=== PATIENT | female | born 2005 | race Hispanic/Latino ===

== ENCOUNTER 2024-08-04 12:08 | Emergency (ER) | payer OTHER ==
[~2024-08-04] VITALS: Ht 162.6 cm; Wt 56.7 kg
[2024-08-04] MEDS: ONDANSETRON 4MG ORAL DISINTEGRATING TAB PO ONE (16:13)
[2024-08-04 16:20] VITALS: BP 117/89; TEMP 96.9; O2SAT 99
[2024-08-04] MEDS ORDERED: ONDA-282 PO (17:30)
== END 2024-08-04 17:39 | disposition home or self-care (01) ==
LOC: M ED 12:08
DX: R11.2 Nausea with vomiting, unspecified (principal); Z3A.00 Weeks of gestation of pregnancy not specified; Z79.899 Other long term (current) drug therapy

== ENCOUNTER 2024-08-18 12:45 | Emergency (ER) | payer OTHER ==
[~2024-08-18] VITALS: Ht 162.6 cm; Wt 56.7 kg
[~2024-08-18 12:45] MED LIST: ONDA-282 PO
[2024-08-18 14:52] LABS: BASO % 0.5 % (0.0-1.0); EOS % 0.2 % (0.0-3.0); HEMATOCRIT 40.2 % (36.0-47.0); HEMOGLOBIN 13.7 g/dl (12.0-15.5); LYMPH # 1.7 10^3/uL (1.5-5.0); LYMPH % 19.6 % (24.0-44.0); MEAN CORPUSCULAR HEMOGLOBIN 32.5 pg (27.0-33.0); MEAN CORPUSCULAR HGB CONC 34.1 g/dl (32.0-36.5); MEAN CORPUSCULAR VOLUME 95.3 fl (80.0-96.0); MONO # 0.7 10^3/uL (0.0-0.8); MONO % 8.4 % (2.0-8.0); NEUTROPHILS # 6.2 10^3/uL (1.5-8.5); NEUTROPHILS % 70.8 % (36.0-66.0); PLATELET COUNT, AUTOMATED 259 10^3/uL (150-450); RED BLOOD COUNT 4.22 10^6/uL (4.00-5.40); WHITE BLOOD COUNT 8.8 10^3/uL (4.0-10.0)
[2024-08-18 14:59] LABS: LIPASE 28 U/L (12-53)
[2024-08-18 15:01] LABS: ALBUMIN 3.7 G/DL (3.2-5.2); ALKALINE PHOSPHATASE 79 U/L (35-104); ALT/SGPT 9 U/L (7.0-40); AST/SGOT 12 U/L (<34); BILIRUBIN,DIRECT 0.2 MG/DL (<0.4); BILIRUBIN,TOTAL 0.7 MG/DL (0.3-1.2); BLOOD UREA NITROGEN 8 MG/DL (9-23); CARBON DIOXIDE LEVEL 26 MMOL/L (20-31); CHLORIDE LEVEL 105 MMOL/L (98-107); CREATININE FOR GFR 0.54 MG/DL (0.55-1.30); GLOMERULAR FILTRATION RATE > 90.0 (>60); GLUCOSE, FASTING 74 MG/DL (60-100); POTASSIUM SERUM 3.9 MMOL/L (3.5-5.1); SODIUM LEVEL 140 MMOL/L (136-145); TOTAL PROTEIN 7.1 G/DL (5.7-8.2)
[2024-08-18 15:27] LABS: HCG, SERUM QUANTITATIVE 177476.2 MIU/ML (<4.2)
[2024-08-18 16:16] LABS: KETONE, URINE AUTO RFX 1+ mg/dL (NEGATIVE); LEUKOCYTE ESTERASE UR AUTO RFX NEGATIVE (NEGATIVE); MUCUS, URINE RFX LARGE (NEGATIVE); NITRITE, URINE AUTO RFX NEGATIVE (NEGATIVE); RBC, URINE AUTO RFX 1 /HPF (0-3); SQUAM EPITHELIAL CELL UR AURFX 2 /HPF (0-6); WBC, URINE AUTO RFX 2 /HPF (0-3)
[2024-08-18] MEDS: ONDANSETRON 4MG ORAL DISINTEGRATING TAB PO ONE (17:12)
[2024-08-18 19:05] VITALS: BP 111/77; TEMP 97.1; O2SAT 100
== END 2024-08-18 19:08 | disposition home or self-care (01) ==
LOC: M ED 12:45
DX: O21.9 Vomiting of pregnancy, unspecified (principal); Z3A.01 Less than 8 weeks gestation of pregnancy

== ENCOUNTER → 2024-10-19 | Outpatient (CLI) | payer OTHER ==
[2024-10-19 13:45] LABS: PLATELET COUNT, AUTOMATED 258 10^3/uL (150-450)
[2024-10-19 14:14] LABS: HIV 1&2 SCREEN NEGATIVE (NEGATIVE)
[2024-10-19 14:22] LABS: HEPATITIS C VIRUS ABY INDEX 0.13 INDEX (<0.8)
[2024-10-19 14:42] LABS: Trichomonas vaginalis (AMP) NOT DETECTED (NEGATIVE)
[2024-10-19 15:06] LABS: GC DNA AMPLIFICATION NEGATIVE (NEGATIVE)
== END ==
LOC: M PLALAB 08:59
PROVIDERS: ATTEND Nurse Practitioner Family
DX: Z34.82 Encounter for supervision of other normal pregnancy, second trimester (principal)

== ENCOUNTER → 2024-10-19 | Outpatient (REF) | payer OTHER | LOC: M PLALAB 09:15 | PROVIDERS: ATTEND Nurse Practitioner Family | DX: Z34.82 Encounter for supervision of other normal pregnancy, second trimester (principal) ==

== ENCOUNTER → 2024-11-23 | Outpatient (CLI) | payer OTHER | LOC: M RAD 15:54 | PROVIDERS: ATTEND Nurse Practitioner Family | DX: Z34.82 Encounter for supervision of other normal pregnancy, second trimester (principal); Z3A.22 22 weeks gestation of pregnancy ==

== ENCOUNTER → 2024-12-28 | Outpatient (CLI) | payer OTHER ==
[2024-12-28 16:16] LABS: PLATELET COUNT, AUTOMATED 275 10^3/uL (150-450)
[2024-12-28 16:38] LABS: GLUCOSE CHALLENGE TEST 1 HOUR 71 MG/DL (LESS THAN 140)
[2024-12-28 17:08] LABS: HIV 1&2 SCREEN NEGATIVE (NEGATIVE)
[2024-12-28 17:16] LABS: HEPATITIS C VIRUS ABY INDEX 0.02 INDEX (<0.8)
[2024-12-28 18:08] LABS: Trichomonas vaginalis (AMP) NOT DETECTED (NEGATIVE)
[2024-12-28 18:31] LABS: GC DNA AMPLIFICATION NEGATIVE (NEGATIVE)
== END ==
LOC: M PLALAB 12:48
PROVIDERS: ATTEND Nurse Practitioner Family
DX: Z34.80 Encounter for supervision of other normal pregnancy, unspecified trimester (principal)

== ENCOUNTER → 2025-03-07 | Outpatient (REF) | payer OTHER | LOC: M SFHCWAGY 13:00 | PROVIDERS: ATTEND Obstetrics & Gynecology | DX: Z34.80 Encounter for supervision of other normal pregnancy, unspecified trimester (principal) ==

== ENCOUNTER 2025-03-26 08:20 | Inpatient (IN) | payer OTHER ==
[2025-03-26] VITALS (15 sets, daily range): BP systolic 104–134; BP diastolic 64–95
[~2025-03-26] VITALS: Ht 162.6 cm; Wt 71.9 kg
[2025-03-26] MEDS ORDERED: PRENTAB9 PO (08:42)
[2025-03-26] MEDS ORDERED: OXYTOCIN INJ 10UNITS/ML 1ML VIAL IV PRN (08:45)
[2025-03-26] MEDS ORDERED: CARBOPROST TROMETHAMINE 250 MCG/ML AMP IM PRN (08:45)
[2025-03-26] MEDS ORDERED: OXYTOCIN DRIP 30 UNITS in IV 1 EA IV PRN (08:45)
[2025-03-26] MEDS ORDERED: OXYTOCIN INJ 10UNITS/ML 1ML VIAL IM PRN (08:45)
[2025-03-26] MEDS: miSOPROStol 50 MCG 1/2 TABLET PO PRN (10:09)
[2025-03-26 10:22] LABS: HIV 1&2 SCREEN NEGATIVE (NEGATIVE)
[2025-03-26 10:30] LABS: HEPATITIS C VIRUS ABY INDEX 0.06 INDEX (<0.8)
[2025-03-26 12:48] LABS: PLATELET COUNT, AUTOMATED 282 10^3/uL (150-450)
[2025-03-26] MEDS: LR 1,000 ML IV SCH (16:45)
[2025-03-26] MEDS: OXYTOCIN DRIP 30 UNITS in IV 1 EA IV SCH (19:44)
[2025-03-26] MEDS: BUTORPHANOL 2 MG/ML 1 ML VIAL IV ONE (23:37)
[2025-03-27] VITALS (14 sets, daily range): BP systolic 87–141; BP diastolic 54–95; O2SAT 98–100
[2025-03-27 01:09] LABS: CORD GAS ABE A -2.5; CORD GAS ABE V -2.2; CORD GAS HCO3 A 24.9 MMOL/L; CORD GAS HCO3 V 21.1 MMOL/L; CORD GAS O2 SAT A 78.2 %; CORD GAS O2 SAT V 83.6 %; CORD GAS PCO2 A 52.4 mmHg; CORD GAS PCO2 V 33.2 mmHg; CORD GAS PH A 7.295 UNITS; CORD GAS PH V 7.422 UNITS; CORD GAS PO2 A 39.0 mmHg; CORD GAS PO2 V 36.9 mmHg; CORD GAS SBC A 21.9 MMOL/L; CORD GAS SBC V 22.3 MMOL/L; CORD GAS TCO2 A 26.5 MMOL/L; CORD GAS TCO2 V 22.2 MMOL/L
[2025-03-27] MEDS: LIDOCAINE 1% MDV 20 ML VIAL INFIL PRN (01:12)
[2025-03-27] MEDS: OXYTOCIN DRIP 30 UNITS in IV 1 EA IV PRN (01:12)
[2025-03-27] MEDS ORDERED: ANUSOL HC CREAM 30 GM TOP PRN (01:30)
[2025-03-27] MEDS ORDERED: DIBUCAINE 1% OINTMENT 30 GM TOP PRN (01:30)
[2025-03-27] MEDS ORDERED: METHYLERGONOVINE MALEATE 0.2 MG TAB PO PRN (01:30)
[2025-03-27] MEDS: METHYLERGONOVINE MALEATE 0.2 MG/ML 1 ML VIAL IM PRN (02:20)
[2025-03-27] MEDS: TRANEXAMIC ACID INJection 1,000 MG in NS 100 ML IV PRN (03:00)
[2025-03-27] MEDS: ONDANSETRON 4MG/2ML VIAL IV ONE (04:00)
[2025-03-27] MEDS: PRENATAL VITAMINS CHEWABLE TABLET PO SCH (09:00)
[2025-03-27] MEDS: DOCUSATE SODIUM 100 MG CAPSULE PO PRN (12:19)
[2025-03-27] MEDS: ACETAMINOPHEN 500 MG TAB PO PRN (12:20)
[2025-03-27] MEDS: IBUPROFEN 800 MG TAB PO PRN (17:33)
[2025-03-28 06:00] VITALS: BP 102/62; O2SAT 99
[2025-03-28 13:43] LABS: BASO # 0.0 10^3/uL (0.0-0.2); BASO % 0.2 % (0.0-1.0); EOS # 0.0 10^3/uL (0.0-0.5); EOS % 0.2 % (0.0-3.0); LYMPH # 2.7 10^3/uL (1.5-5.0); LYMPH % 21.8 % (24.0-44.0); MONO # 0.8 10^3/uL (0.0-0.8); MONO % 6.5 % (2.0-8.0); NEUTROPHILS # 8.6 10^3/uL (1.5-8.5); NEUTROPHILS % 69.8 % (36.0-66.0); PLATELET COUNT, AUTOMATED 225 10^3/uL (150-450)
[2025-03-28 18:02] VITALS: BP 118/72; O2SAT 100
[2025-03-28] MEDS: MEASLES,MUMPS,RUBELLA VACCINE INJ (MMR-II) SC.IMMUN ONE (19:11)
[2025-03-28] MEDS: RHOGAM 300MCG (1500IU) INJ IM SCH (19:11)
[2025-03-29 05:18] VITALS: BP 98/56; O2SAT 100
[2025-03-29] MEDS ORDERED: IBUP600T42 PO (09:00)
[2025-03-29] MEDS ORDERED: ACET-907 PO (09:00)
== END 2025-03-29 10:15 | disposition home or self-care (01) | DRG 807 ==
LOC: M LDI 08:20 → M OBS 03-27 04:14
PROVIDERS: ADMIT Obstetrics & Gynecology; ATTEND Obstetrics & Gynecology
PROC: 3E033VJ Introduction of Other Hormone into Peripheral Vein, Percutaneous Approach (ICD-10-PCS; 2025-03-26)
PROC: 10E0XZZ Delivery of Products of Conception, External Approach (ICD-10-PCS; principal; 2025-03-27)
PROC: 0KQM0ZZ Repair Perineum Muscle, Open Approach (ICD-10-PCS; 2025-03-27)
DX: O48.0 Post-term pregnancy (principal); Z37.0 Single live birth; Z3A.40 40 weeks gestation of pregnancy; O66.0 Obstructed labor due to shoulder dystocia; O69.1XX0 Labor and delivery complicated by cord around neck, with compression, not applicable or unspecified; O70.0 First degree perineal laceration during delivery